=== PATIENT | female | born 1975 | race Caucasian/White ===

== ENCOUNTER 2017-06-02 20:54 | Emergency (ER) | payer MEDICAID ==
[~2017-06-02] VITALS: Ht 162.6 cm; Wt 85.0 kg
[~2017-06-02 20:54] MED LIST: PREN1TAB17 PO
[2017-06-02 21:08] VITALS: Ht 162.6 cm; Wt 85.0 kg
[2017-06-02 23:18] LABS: URINE BLOOD (Dip) POC 2+ (NEGATIVE)
--- NOTE | 2017-06-02 23:39 | ERD ---
ER Documentation Chief Complaint Chief Complaint Flank pain, fever, x 3 days HPI 41-year-old female, previously healthy, presents to the emergency department complaining of 3 days with progressive dysuria, associated with mild bilateral flank pain and subjective fever. The patient denies any recent urinary tract infection, no nausea, no vomiting, no abdominal pain. No treatment attempted at this time. She is also complaining of 1 week with upper respiratory symptoms including cough and sore throat. ROS A 12-point review of systems was performed and negative other than presented in the history of present illness. SYSTEMIC symptoms: fever, chills, no night sweats, no weight loss EYE symptoms: No blurred vision, no eye discharge OTOLARYNGEAL symptoms: No hearing loss. No ear pain, no sore throat CARDIOVASCULAR symptoms: No chest pain or discomfort, no palpitations. PULMONARY symptoms: No dyspnea, no cough, no wheezing. GASTROINTESTINAL symptoms: No abdominal pain, no nausea, no vomiting, no diarrhea MUSCULOSKELETAL symptoms: No arthralgias, no muscle aches. NEUROLOGY symptoms: No confusion, no syncope, no numbness or tingling. SKIN: No rashes Medications Home Meds Active Scripts Promethazine HCl/Codeine (Prometh-Codein 6.25-10 mg/5 ml) 5 Ml Syrup, 5 ML PO BID Y for COUGH, #120 ML Prov:FEROZ TUCKER MD 06/02/17 Ciprofloxacin Hcl* (Ciprofloxacin Hcl*) 250 Mg Tablet, 250 MG PO BID, #14 TAB Prov:FEROZ TUCKER MD 06/02/17 Reported Medications Vit-Iron Fumarate-FA ( Tablet) 1 Each Tablet, 1 EACH PO DAILY 03/12/13 Allergies Allergies: Coded Allergies: No Known Allergy (Unverified , 06/28/06) PMhx/Soc History of Surgery: No Anesthesia Reaction: No Hx Neurological Disorder: No Hx Respiratory Disorders: No Hx Cardiac Disorders: No Hx Psychiatric Problems: No Hx Miscellaneous Medical Probl: No Hx Alcohol Use: No Hx Substance Use: No Hx Tobacco Use: No Smoking Status: Never smoker Physical Exam Vitals Vital Signs Date Time Temp Pulse Resp B/P Pulse Ox O2 Delivery O2 Flow Rate FiO2 06/02/17 21:08 99.1 104 20 147/86 99 Physical Exam Patient is in no acute distress, vital signs stable. Alert and fully oriented. EYES: PERRLA, EOMI, Sclera and conjunctiva appear normal. EARS: Canals clear, tympanic membranes WNL THROAT: Normal oropharynx. NECK: Supple, No lymphadenopathy. Full ROM without pain or tenderness. HEART: RRR, no rubs, murmurs, clicks or gallops. LUNGS: Clear to auscultation. ABDOMEN: Soft, non-tender without masses or hepatosplenomegaly. EXTREMITIES: No edema bilaterally. BACK: Full ROM, no deformity, normal back exam NEURO: Cranial nerves grossly intact, no motor or sensory deficit Results 24 hrs Laboratory Tests Test 06/02/17 23:20 Bedside Urine pH (LAB) 6.0 Bedside Urine Protein (LAB) 2+ Bedside Urine Glucose (UA) 0.25% Bedside Urine Ketones (LAB) Trace Bedside Urine Blood 2+ Bedside Urine Nitrite (LAB) Positive Bedside Urine Leukocyte Esterase (L 1+ Procedures/MDM 41-year-old female, presents to the emergency department complaining of 3 days with dysuria, fever and back pain. Vital signs stable, Physical exam unremarkable, no peritoneal signs.. Differential diagnosis include but not limited to: UTI, colitis, gastroenteritis , kidney stones, irritable bowel syndrome. Low suspicion for acute abdomen . Pertinent Data: UA: Positive nitrates Physical examination and clinical presentation consistent most likely with urinary tract infection. During the ED course the patient remained stable, no new complaints. Results and clinical impression discussed with patient who agrees with management. The patient is stable to be treated outpatient and will be discharged home with a Rx for ciprofloxacin and cough medication, some side effects of prescribed medications (headache, rash, nausea, vomiting, diarrhea, drowsiness, habituation, bleeding, hypertension, interactions with other medications) were reviewed. The patient was instructed to follow up with the primary care provider in the next 48h. If symptoms persist, worsen or new symptoms develop, then patient should return to the ED immediately. Instructions explained and given directly by me to the patient in [place] with acknowledgment and demonstrated understanding. Disclaimer: Inadvertent spelling and grammatical errors are likely due to EHR/ dictation software use and do not reflect on the overall quality of patient care. Also, please note that the electronic time recorded on this note does not necessarily reflect the actual time of the patient encounter. Departure Diagnosis: Primary Impression: UTI (urinary tract infection) Condition: Stable Additional Instructions: Gabrielaas saumya por [facility] para graves servicio. Esperamos que en graves visita a la nataliia de emergencia graves problema medico haya sido solucionado y que se sienta mucho mejor. Para estar seguros que graves mejoria sigue en proceso, le pedimos el favor de hacer tyler carmen de seguimiento medico con graves doctor primario en los proximos 2-4 [place]. Lleve con usted estos documentos y las medicinas recetadas. Si heladio sintomas empeoran y no puede yuniel a graves doctor, por favor regrese a nataliia de emergencia. En jeffrey que usted no tenga un mdico de atencin primaria: Llame al mdico o clnica comunitaria de referencia que aparece abajo gerard las horas de consultorio para hacer tyler carmen para que le vean. CLINICAS: [facility] [phone] [facility] [phone] [facility] [phone] [facility] [phone] [facility] [phone] [id number] [facility] [facility] [phone] FEROZ GARCIA MD Jun 02, 2017 23:39
[2017-06-02] MEDS ORDERED: PROM5SYR2 PO (23:52)
[2017-06-02] MEDS ORDERED: CIPR-193 PO (23:52)
[2017-06-03 00:08] VITALS: BP 132/91; PULSE 92; RESP 14; TEMP 98.5
== END 2017-06-03 00:08 | disposition home or self-care (01) ==
LOC: FTE 20:54
DX: N39.0 Urinary tract infection, site not specified (principal)
CPT/HCPCS: 81003; Z7502; 99284

== ENCOUNTER 2017-09-15 08:18 | Emergency (ER) | END 2017-09-15 08:56 | disposition home or self-care (01) ==